=== PATIENT | female | born 1975 | race Two or more races ===

== ENCOUNTER 2022-06-09 09:16 | Outpatient (CLI) | payer OTHER | END 2022-06-09 09:29 | disposition home or self-care (01) | LOC: TOM 09:16 | PROVIDERS: ATTEND Internal Medicine | DX: Z12.11 Encounter for screening for malignant neoplasm of colon (principal); Z80.0 Family history of malignant neoplasm of digestive organs; K56.50 Intestinal adhesions [bands], unspecified as to partial versus complete obstruction ==